=== PATIENT | female | born 1980 | race Caucasian/White ===

== ENCOUNTER 2022-03-10 14:20 | Emergency (ER) | payer BC ==
[~2022-03-10 14:20] MED LIST: MELATONIN3 MG PO; NAPROXEN 250 M250 MG PO; NORCO 5-325 TA1 EACH PO; ZOFRAN8 MG PO
[2022-03-10 19:40] LABS: HEMOGLOBIN 13.4 gm/dl (12.3-15.3); RED BLOOD COUNT 4.47 M/UL (4.00-5.10); WHITE BLOOD COUNT 12.6 K/UL (4.5-11.0)
[2022-03-10 20:00] LABS: BUN/CREATININE RATIO 22 (0-10)
[2022-03-10] MEDS ORDERED: ZOFRAN ODT 4 MG4 MG SL (21:38)
[2022-03-10] MEDS ORDERED: HYDROCODON-ACE1 EAC4 PO (21:38)
[2022-03-10] MEDS ORDERED: FLOMAX0.4 MG PO (21:38)
== END 2022-03-10 22:00 | disposition home or self-care (01) ==
LOC: ER1 14:20
PROVIDERS: Physician Assistant
DX: N13.2 Hydronephrosis with renal and ureteral calculous obstruction (principal); Z88.1 Allergy status to other antibiotic agents
CPT/HCPCS: 80053; 81001; 83690; 84703; 85025; 96374; 96375; 99284; J1885; J2270; Q9967